=== PATIENT | female | born 1970 ===

== ENCOUNTER 2018-02-17 12:21 | Day surgery (SDC) | payer SELFPAY ==
[2018-02-09 10:11] VITALS: BMI 23.6
[2018-02-17 13:12] VITALS: RESP 18
--- NOTE | 2018-02-17 14:53 | CP.SDSHP ---
Same Day Surgery H & P - History Proposed Procedure: Hemorrhoidectomy Pre-Op Diagnosis: External hemorrhoids - Previous Medical/Surgical History Previous Surgical History: previous [id number]+ years ago. Breast implants. Abdominoplasty - Allergies Allergies: Allergies No Known Allergies Allergy (Verified 10/02/15 09:49) - Current Medications Current Medications: denies - Physical Exam General Appearance: Well developed well norished, No apparent distress Vital Signs: Vital Signs 02/17/18 02/17/18 13:04 13:11 Temperature 98.0 F Pulse Rate 71 71 Respiratory 18 Rate Blood Pressure 102/61 O2 Sat by Pulse 99 Oximetry Mental Status: Alert & Oriented x3 Heart: WNL (RRR) Lungs: WNL GI: WNL (non tender, non distended, incision well healed.) - {Optional Preform as Required} Abdomen: WNL Rectal: Other (hemorrhoid x 2. approx 2 cm in diameter. no bleeding) Integument: WNL (no signs of skin infection, or bleeding. warm, intact) - Impression Impression: Painful non-bleeding external hemorriod at this time Pt. Evaluated Today:Candidate for Anesthesia & Procedure: Yes (will perform hemorrhoidectomy) - Date & Time Date: 02/17/18 Time: 14:57 Short Stay Discharge - Short Stay Discharge Admitting Diagnosis/Reason for Visit: K64.4 Disposition: HOME/ ROUTINE Referrals: Sindhu Garay MD [Primary Care Provider] - Alex Sawyer MD [Staff Provider] - Follow-up: follow up in office w/ Dr. Sawyer in 1-2 weeks Additional Instructions (Diet, Activity): Take mineral oil by mouth, and pain medication as prescribed. Can shower tomorrow. Expect to see some blood in stool during bowel movements. This is normal. Vaseline gauze at site, will fall out on its own. If fever greater than 100.4 take over the counter Tylenol. if fever persists go to the ER follow up with Dr. Sawyer in office in 1-2 weeks.
[2018-02-17] MEDS ORDERED: Propofol 10 mg/ml Inj (20 ML) ONE (14:56)
[2018-02-17] MEDS ORDERED: Lactated Ringer's 1,000 ML IV ONE ×2 (15:00→17:00)
[2018-02-17] MEDS ORDERED: Midazolam 2 MG/2 ML VIAL ONE (15:21)
[2018-02-17] MEDS ORDERED: Sodium Chloride 0.45% 1,000 ML IV ONE (15:30)
[2018-02-17] MEDS ORDERED: Bupivacaine 0.25% Inj(30mL) IJ ONE ×2 (15:30)
[2018-02-17] MEDS ORDERED: Oxycodone/Acetaminophen 5/325 mg Tab PO ONE (15:58)
--- NOTE | 2018-02-17 16:04 | PCM.SURG1 ---
Surgeon's Initial Post Op Note - Surgeon's Notes Surgeon: Dr. Sawyer Avionic Technician: Dr. Navarro PGY2, Dr. Peters PGY1 Type of Anesthesia: General LMA Pre-Operative Diagnosis: hemorrhoid Operative Findings: left posterior external and internal hemorrhoid Post-Operative Diagnosis: see operative report Operation Performed: exam under anesthesia. proctoscopy. hemorrhoidectomy Specimen/Specimens Removed: hemorrhoid Estimated Blood Loss: EBL {In ML}: 20 Blood Products Given: N/A Drains Used: No Drains Post-Op Condition: Good Date of Surgery/Procedure: 02/17/18 Time of Surgery/Procedure: 15:00
[2018-02-17] MEDS ORDERED: HYDROmorphone 0.5 mg/0.5 ml ISec IVP PRN (16:07)
[2018-02-17] MEDS ORDERED: DiphenhydrAMINE 50 mg/ml Inj IVP PRN (16:07)
[2018-02-17] MEDS ORDERED: Lactated Ringer's 1,000 ML IV SCH (16:15)
[2018-02-17 17:45] VITALS: TEMP 97.6
[2018-02-17 18:28] VITALS: BP 112/67; PULSE 76; O2SAT 100
--- NOTE | 2018-02-19 01:12 | OP ---
PROCEDURE DATE: 02/17/2018 PREOPERATIVE DIAGNOSIS: Hemorrhoid. POSTOPERATIVE DIAGNOSIS: Hemorrhoid. PROCEDURES: Proctoscopy and hemorrhoidectomy. SURGEON Alex Sawyer MD PHARMACY PICKING TECH: Cal Navarro DO ANESTHESIA General LMA. DESCRIPTION OF OPERATION The patient was placed on the operating table and anesthetized and positioned in lithotomy thinned stirrups. The examination of the rectum identified a 1 cm external hemorrhoidal mass, which was not acutely inflamed but firm and rigid proctoscopy was performed to approximately 15 cm with a finding of only enlarged internal hemorrhoid also at the right posterior position adjacent to the external hemorrhoid. No additional findings and no significant other hemorrhoids were identified. The anal area was then prepped and draped in the usual sterile manner and 0.5% Marcaine was infiltrated subcutaneously. An operating anoscope was positioned and a 2-0 chromic suture was placed near the base of the internal portion of the hemorrhoids at the 7 o'clock position and this was tied. Incision was made then around the external portion of the hemorrhoid and the hemorrhoid with a small strip of overlying mucosa was dissected free of the underlying sphincter down to the base where the suture had been placed. When this was freed, the same suture was used to ligate the hemorrhoid which was then excised. The same suture was then used to close the anal mucosa out to the level of the anal verge, at which point the anoderm was left open for a semiclosed hemorrhoidectomy. The operative site was examined for hemostasis. Vaseline gauze packing was placed followed by a dry sterile dressing. The patient tolerated the procedure well and transferred to recovery room in stable condition. Estimated blood loss for the procedure was 20 mL. Aelx Sawyer MD
== END 2018-02-17 19:00 | disposition home or self-care (01) ==
LOC: H.OPSURG 12:21
PROVIDERS: ATTEND Specialist
DX: K64.4 Residual hemorrhoidal skin tags (principal); R12 Heartburn; J45.909 Unspecified asthma, uncomplicated
CPT/HCPCS: 46260; 88305; J0690; J1170; J2250; J2704; J3010; J7030; J7120

== ENCOUNTER 2018-09-06 18:28 | Emergency (ER) | payer SELFPAY ==
[2018-09-06 18:29] VITALS: BMI 23.6
[2018-09-06 18:42] VITALS: O2SAT 99
[2018-09-06 19:55] LABS: BASO # 0.1 K/uL (0.0-0.2); BASO % 0.8 % (0.0-2.0); EOS # 0.2 K/uL (0.0-0.7); EOS % 1.9 % (0.0-4.0); LYMPH # 2.4 K/uL (1.0-4.3); LYMPH % 29.3 % (20.0-40.0); MEAN CELL VOLUME 94.1 fl (81.0-99.0); MEAN CORPUSCULAR HEMOGLOBIN 30.5 pg (27.0-31.0); MEAN CORPUSCULAR HGB CONC 32.4 g/dL (33.0-37.0); MEAN PLATELET VOLUME 9.9 fl (7.2-11.7); MONO # 0.6 K/uL (0.0-0.8); MONO % 7.1 % (0.0-10.0); NEUT # 4.9 K/uL (1.8-7.0); NEUT % 60.9 % (50.0-75.0); NRBC % 0.2 % (0.0-0.0); RBC 4.25 Mil/uL (3.80-5.20); RED CELL DISTRIBUTION WIDTH 13.4 % (11.5-14.5)
--- NOTE | 2018-09-06 19:58 | ED PDOC ---
HPI: Chest Pain Time Seen by Provider: 09/06/18 19:00 Chief Complaint (Nursing): Chest Pain Chief Complaint (Provider): Chest Pain History Per: Patient History/Exam Limitations: no limitations Onset/Duration Of Symptoms: Intermittent Episodes (x2 months) Current Symptoms Are (Timing): Intermittent Episodes Additional Complaint(s): 47 year old female presents to the ED for evaluation of intermittent left sided chest pain radiating down her left arm associated with middle finger numbness for the past two months. Patient is asymptomatic now, but notes a dry cough. Den ies any pain, nausea, vomiting, fever, chills, and family history of DVT. PMD: [facility] Past Medical History Reviewed: Historical Data, Nursing Documentation, Vital Signs Vital Signs: Last Vital Signs Temp 98.3 F 09/06/18 18:40 Pulse 78 09/06/18 18:40 Resp 18 09/06/18 18:40 BP 138/83 09/06/18 18:40 Pulse Ox 99 09/06/18 18:40 - Medical History PMH: Gastritis Denies: Anemia, Chronic Kidney Disease - Surgical History Surgical History: No Surg Hx - Family History Family History: States: No Known Family Hx - Social History Current smoker - smoking cessation education provided: No Alcohol: None Drugs: Denies - Immunization History Hx Tetanus Toxoid Vaccination: No Hx Influenza Vaccination: No Hx Pneumococcal Vaccination: No - Home Medications Home Medications: Ambulatory Orders Medication Instructions Recorded oxyCODONE/Acetaminophen [Percocet 1 tab PO Q6 PRN 02/17/18 5/325 mg Tab] - Allergies Allergies/Adverse Reactions: Allergies Allergy/AdvReac Type Severity Reaction Status Date / Time No Known Allergies Allergy Verified 10/02/15 09:49 CRISSY Risk Score for UA/NSTEMI - CRISSY Risk Score Age > 64: NO 3 or more CAD Risk Factors: NO Known CAD (Stenosis greater than 50%): NO Aspirin use in past 7 days: NO Severe Angina: NO EKG ST changes greater than 0.5mm: NO Positive Cardiac Marker: NO CRISSY Score: 0 Risk %: 5% Curb-65 Severity Score - CURB-65 Severity Score Confusion: No Bun >19mg/dl (>7mmol/L): No Respiratory Rate greater than/equal to 30: No Systolic BP <90 or Diastolic BP less than/equal 60mmHg: No Age >64: No Curb-65 Score: 0 Percentage 30-day mortality: 0.6% Wells Criteria for PE - Wells Criteria for Pulmonary Embolism Clinical Signs and Symptoms of DVT: No P.E is #1 Diagnosis, or Equally Likely: No Heart Rate >100: No Immobilization at least 3 days;Surgery previous 4 weeks: No Previous, objectively diagnosed PE or DVT: No Hemoptysis: No Malignancy w/treatment within 6 months, or palliative: No Total Score: 0 Review of Systems ROS Statement: Except As Marked, All Systems Reviewed And Found Negative Constitutional: Negative for: Fever, Chills Cardiovascular: Positive for: Chest Pain (left radiating down left arm) Respiratory: Positive for: Cough (dry) Gastrointestinal: Negative for: Nausea, Vomiting Neurological: Positive for: Numbness (in middle finger of left hand) Physical Exam - Reviewed Nursing Documentation Reviewed: Yes Vital Signs Reviewed: Yes - Physical Exam Appears: Positive for: No Acute Distress Head Exam: Positive for: ATRAUMATIC, NORMOCEPHALIC Skin: Positive for: Normal Color, Warm Eye Exam: Positive for: Normal appearance Neck: Positive for: Normal, Painless ROM, Supple Cardiovascular/Chest: Positive for: Regular Rate, Rhythm. Negative for: Chest Non Tender (left chest wall tenderness to palpation) Respiratory: Positive for: Normal Breath Sounds. Negative for: Respiratory Distress Gastrointestinal/Abdominal: Positive for: Normal Exam, Soft. Negative for: Tenderness Back: Positive for: Normal Inspection Extremity: Positive for: Normal ROM Neurologic/Psych: Positive for: Alert, Oriented (x3) - Laboratory Results Result Diagrams: 09/06/18 19:49 09/06/18 19:49 - ECG ECG: Positive for: Interpreted By Me, Viewed By Me ECG Rhythm: Positive for: Normal QRS, Normal ST Segment, Sinus Rhythm (normal at 78) O2 Sat by Pulse Oximetry: 99 (RA) Pulse Ox Interpretation: Normal Medical Decision Making Medical Decision Making: Time: 1932 Initial Impression: chest pain Initial Plan: --CMP --Trop I --CBC with differential --Chest x-ray --Ibuprofen 600mg PO Patient's repeat troponin was negative. cxr no infiltrate 2330 Upon provider reevaluation patient is feeling better, is medically stable, and requires no further treatment in the ED at this time. on reevaluation pt resting comfortably in bed in NAD. Patient will be discharged home. Counseling was provided and all questions were answered regarding diagnosis and need for follow up with clinic. There is agreement to discharge plan. Return if symptoms persist or worsen. Scribe Attestation: Documented by Vickie Daily, acting as a scribe for Liliane Ambrosio MD. Provider Scribe Attestation: All medical record entries made by the Scribe were at my direction and personally dictated by me. I have reviewed the chart and agree that the record accurately reflects my personal performance of the history, physical exam, medical decision making, and the department course for this patient. I have also personally directed, reviewed, and agree with the discharge instructions and disposition. Disposition - Clinical Impression Clinical Impression: Atypical chest pain - Patient ED Disposition Is Patient to be Admitted: No Counseled Patient/Family Regarding: Studies Performed, Diagnosis, Need For Followup - Disposition Referrals: [facility] [Outside] [facility] [Outside] Disposition: Routine/Home Disposition Time: 00:00 Condition: IMPROVED Additional Instructions: follow up in the clinic in 2 days return to the ED with any worsening or concerning symptoms Instructions: Chest Pain That Is Not Caused by the Heart (DC) Forms: Buck Mason (Belarusian)
[2018-09-06 20:02] LABS: ALB/GLOB RATIO 1.2 (1.0-2.1); ALBUMIN 4.1 g/dL (3.5-5.0); ALT/SGPT 29 U/L (9-52); AST/SGOT 26 U/L (14-36); BLOOD UREA NITROGEN 21 mg/dl (7-17); CALCIUM 8.6 mg/dL (8.4-10.2); GFR NON-AFRICAN AMERICAN > 60
[2018-09-06 23:57] VITALS: BP 110/69; PULSE 72; RESP 15; TEMP 98.2
--- NOTE | 2018-09-07 14:56 | RAD ---
Date of service: 09/06/2018 HISTORY: cp COMPARISON: Chest radiographs 02/09/2018. TECHNIQUE: Chest PA and lateral FINDINGS: LUNGS: No active pulmonary disease. PLEURA: No significant pleural effusion identified. No pneumothorax apparent. CARDIOVASCULAR: No aortic atherosclerotic calcification present. Normal cardiac size. No pulmonary vascular congestion. OSSEOUS STRUCTURES: No significant abnormalities. VISUALIZED UPPER ABDOMEN: Normal. OTHER FINDINGS: None. IMPRESSION: No interval acute cardiopulmonary disease appreciated.
== END 2018-09-07 00:34 | disposition home or self-care (01) ==
LOC: H.ER 18:28
DX: R07.9 Chest pain, unspecified (principal)